=== PATIENT | male | born 1940 | race Caucasian/White ===

== ENCOUNTER 2016-06-23 14:15 | Inpatient (IN) | payer OTHER, MEDICARE, BC ==
[~2016-06-23] VITALS: Ht 182.9 cm; Wt 100.6 kg
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
[~2016-06-23 14:15] MED LIST: ASPIRIN LO-DOSE81 MG PO; COUMADIN ** IA5 MG PO; CRANBERRY200 MG PO; FLOMAX0.4 MG PO; GLUCAGON EMERGEN1 MG SUB-Q; HYDROCHLOROTH12.5 M1 PO; IRON325 MG PO; LEVEMIR FL100 UNIT/1 SUB-Q; LEVOTHROID(SY175 MCG PO; LIPITOR20 M1 PO; LOPRESSOR25 MG PO; LYRICA 50MG CAP50 MG PO; MELOXICAM15 MG PO; MILK OF MA400 MG/5 M PO; MIRTAZAPINE7.5 MG PO; NEURONTIN100 MG PO; NORVASC5 MG PO; NOVOLOG100 UNIT/M SUB-Q; PROTONIX40 MG PO; SENNA8.6 MG PO; TYLENOL325 MG PO; ULTRAM50 MG PO; VITAMIN D1000 UNIT PO; WELLBUTRIN100 MG PO; ZOLOFT50 MG PO
--- NOTE | 2016-06-23 19:04 | NUR ---
D: Nursing Admission I: Nursing interventions provided to support the patient's individual plan of care R: MOBILITY-- Patient is a full lift at this time with non weight bearing on nolan lower extremities NUTRITION-- Patient is diabetic. He is on a regular diet and accuchecks achs. SKIN/INCISIONS/WOUNDS-- Patient has multiple areas of bruising in various stages. Has several small incisions over lower right abdomen all healed. 2 incisions still have steri strips intact. Has multiple areas of scabs over arms and left elbow. He has 2 fluid filled blisters blisters which are intact on his left side. SELF CARES-- He is dependant for his cares at this time. BOWEL/BLADDER--He is continent of bowel but does have some incontinence of bladder and wears a brief. RESPIRATORY-- Lungs are clear. PAIN-- Has generalized pain of legs and arms nolan. PSYCHOSOCIAL-- Denied needs at this time. COGNITION-- He is alert and oriented to self only. SPECIAL NEEDS-- Wound vac in place, woc following. BLEEDING-- He is at risk for bleeding due to multiple injuries and currently on heparin. Has a hx of nolan dvt's in legs. SENSORY IMPAIRMENTS/DENTAL NEEDS: None at this time. TEACHING NEEDS-- He needs lots of teaching regarding his healing an recovery needs. INFECTION CONCERNS: Concern for infection due to incision/wound vac remains in place. RISK FOR ELOPEMENT: None NEED FOR BED/MOVEMENT ALARM: Needs alarms for safety. DISMISSAL PLANS: Unknown at this time. Other: P: Current plan of care reviewed and updated 06/23/16 Olegario GALVEZ
--- NOTE | 2016-06-24 03:52 | NUR ---
Significant Event:PT AAO TO SELF HOWEVER CONFUSED TO PLACE AND TIME.PT IRRITABLE AT TIMES WITH STAFF,REQUIRES 2 ASSIST FOR ALL REPOSISTIONING. REPOSISTIONED EVERY 2 HOURS AND PRN. PT VSS.LAST PAIN PILLS AT 2129. HAS RESTED WELL SINCE. INCONT OF BOWEL AND BLADDER. WOUND VAC TO LEFT UPPER OUTER THIGH. IMMOBILIZER TO RIGHT LEG IN PLACE WELL FOOT DROP BOOT. BRUSING TO MOST OF BODY, SCROTUM BRUSIED WELL. PT HAS PAIN WITH MOVEMENT AND CAN GET AGITATED WITH MOVEMENT.IS FULL LIFT FOR TRANSFERS.IV TO LEFT FOREARM, IV ANTIBIOTICS EVERY 6 HOURS.ACHS BLOOD SUGARS.PABLITO WRAP TO LEFT LEG FROM THIGH TO TOES IN PLACE.NEEDS RIENFORCMENT WITH CALL LIGHT USE TENDS TO YELL OUT FOR STAFF. TAKE MEDICAITON WHOLE WITH NO COMPLICAIONTS. Follow up:
--- NOTE | 2016-06-24 14:51 | NUR ---
Significant Event: ALERT TO NAME, UNABLE TO TELL STAFF PLACE/TIME. FULL LIFT TRANSFERS, REQUESTS BEDPAN- UNABLE TO HAVE BM- SUPPOSITORY GIVEN- MODERATE FROMED AMOUNT, INCONTINENT OF URINE-URINATES IN FRONT USE CHUX ALONG WITH BRIEF FOR INCONTINENCE. WILL REQUEST URINAL ON OCCASSION- PENIS IS HIDDEN WITHIN SCROTUM AND FORESKIN- WILL HAVE TO FIND AND PUSH OUT TO GET IN URINAL PROPERLY. BED BATH TODAY, PABLITO WRAP REMOVED FROM L)LEG AND REAPPLIED, SKIN LOTIONED, WOUNDVAC TO L)UPPER BACK THIGH DRY/INTACT AND WORKING PROPERLY, R)LEG IMMOBILIZER REMOVED-LEG LOTIONED AND REAPPLIED, SCAB AREA TO BACK OF R)ACHILLES INTACT, FOOT DROP BOOT ALSO APPLIED. STERISTRIPS REMAIN INTACT TO ABDOMEN X2, R)SIDE INCISION HEALED. SHAVED, TOENAILS TRIMMED, PERIPHERAL IV FLUSHES WELL TO L)FA, IV ANTIBIOTICS GIVEN ORDERED. 2 NORCO GIVEN AT 0930. UP IN RECLINER AT LUNCH-TSLO BRACE ON WHILE UP MORE THAN 30 DEGREES. SET UP ASSIST WITH MEALS AND FINGER FOODS, AND DAUGHTER HERE TO VISIT THIS AFTN. ACCUCHECKS AC/HS WITH SLIDING SCALE INSULIN. TAKES MEDS WHOLE WITH WATER. Follow up:
--- NOTE | 2016-06-25 01:33 | NUR ---
Significant Event: Patient is alert to slef only. Transfers with full lift and two assist. Turned and repositioned every two hours during the night. Incontinent of B&B. Joshua wrap Removed and replaced to left leg. Skin clean, dry. Accuchecks AC/HS with sliding scale insulin. HS BG 192. Patient pulled out slaine lock at 2300 and New slaine lock was placed to right forearm. Follow up:
--- NOTE | 2016-06-25 14:05 | NUR ---
Significant Event: Alert to self. Forgetful of time/date. Cooperative with cares and follows instruction. RLE immobilizer and foot drop boot on this shift. Left thigh wound vac dressing reenforced this shift, new glenna wrap to LLE. TLSO brace on when up. Full lift transfer. VSS. [place] prn pain control. XL incontinence throughout shift. Douglas called regarding concern for skin reddness/irritation from continuous urine saturation; waiting for return call. Accuchecks ACHS with SSI coverage. Follow up:
--- NOTE | 2016-06-26 03:44 | NUR ---
Significant Event: Patient is alert to self only. Transfers with full lift and two assist. Turned and repositioned every two hours during the night. Incontinent of B&B, pericare given after each incontinent episodes. Accuchecks AC/HS with sliding scale insulin. HS blood glucose was 154. Saline lock to right forearm intact and patent. Follow up:
[2016-06-26 05:40] LABS: BASOPHIL # 0.1 K/uL (0.0-0.2); BASOPHIL % 0.8 %; EOSINOPHIL # 0.2 K/uL (0.0-0.5); HEMATOCRIT 34.9 % (37.0-53.0); HEMOGLOBIN 10.5 g/dL (11.0-16.0); IMMATURE GRANULOCYTE # 0.3 K/uL (0.0-0.3); IMMATURE GRANULOCYTE % 3.5 %; LYMPHOCYTE % 27.1 %; MCH 29.6 pg (27.0-34.0); MCHC 30.1 gm/dL (32.0-36.5); MCV 98.3 fl (83.0-98.0); MONOCYTE # 0.6 K/uL (0.0-1.0); MONOCYTE % 8.1 %; MPV 8.9 fl (9.4-12.4); NEUTROPHIL # (ANC) 4.4 K/uL (1.4-9.0); NEUTROPHIL % 58.5 %; NRBC % 0 /100WBC (0-0.00); PLATELET COUNT 368 K/uL (150-450); RBC 3.55 M/uL (3.50-5.50); WBC 7.5 K/uL (4.0-11.0)
[2016-06-26 06:00] LABS: ANION GAP 12.9 (10.0-19.0); BLOOD UREA NITROGEN 11 mg/dL (6-24); CALCIUM 8.3 mg/dL (8.5-10.5); CHLORIDE 108 mMol/L (96-110); CO2 26 mMol/L (22-32); CREATININE 0.8 mg/dL (0.6-1.3); ESTIMATED GFR (MDRD EQUATION) > 60; POTASSIUM 3.9 mMol/L (3.7-5.1); SODIUM 143 mMol/L (135-145)
--- NOTE | 2016-06-26 19:29 | NUR ---
Significant Event: Follow up: Patient remain in bed today, turned by staff every 2-3 hours also patient slids around in bed on his own. Therapy works with his also. Long leg brace to right leg was opened today and examined skin. Acewrap to left leg was rewapped and wound vac dressing changed out by [facility] today. Eats by himself with set up and encourgement. Patient is confused to place and time, ready to go home to do chores. IV antibiotics continue. Mckinney given this afternoon with dressing change.
--- NOTE | 2016-06-27 04:23 | NUR ---
Significant Event: Patient has been oriented to self and able to state month/year. Unable to reorient pt that he is in the hospital. Was yelling out beginning of shift but has been calm and cooperative with staff. Slept well this shift. IV to right forearm receiving intermittent antibiotics. Wound vac to left thigh, glenna wrap to left leg and immobilizer on right leg. Vitals stable on room air. Incontinent of urine, scrotum and penis becoming reddened. Aloe applied. 2 tabs norco given with night time meds with relief. Pain with repositioning. Took meds whole without problems. Follow up: reorient as needed, 2 assist lift, incontinent cares, TLSO when up
--- NOTE | 2016-06-27 13:52 | NUR ---
Significant Event: Alert to self. Follows directions is cooperative with cares. Pleasantly disoriented to place/time. VSS. Full lift transfer. Left thigh wound vac intact, new glenna wrap to LLE. RLE immobilizer on today. Right FA SL intact, intermittent antibiotics. Large and frequent incontinence, creams to red, irritated groin- no alejandra order per Douglas. Accuchecks achs with ssi coverage. [place] prn pain. Takes meds whole without difficulty. Follow up:
--- NOTE | 2016-06-28 04:11 | NUR ---
Significant Event: Alert and makes needs known. Oriented to name and knows he is in the hospital but can not state this hospital. Wound vac to left thigh functioning w/out difficulty. Peripheral IV in R) forearm flushed well and is wraped in coban. Requested ice cream at HS. Accu check was 151, patient received 2 units of Novolog per s/s. Takes pills whole without difficulty. Follow up:
--- NOTE | 2016-06-28 14:01 | NUR ---
Significant Event: Patient alert but confused and forgetful at times. 2 assist full lift. Needs TLSO on when greater than 45 degrees. Foot drop boot to right leg at all times. Saline lock. Wound vac to left leg. WOC here to change dressing today. here also to evaluate wound. IDD here today and discontinued IV antibiotics. Started on oral antibiotics. Heparin SQ discontinued and coumadin started. To have H&H in the morning. Dulcolox suppository given with results. Taking Moosic for pain. Accuchecks with s/s insulin. Follow up:
--- NOTE | 2016-06-29 01:43 | NUR ---
Significant Event: Alert/oriented x3. Transfers with full lift. No transfers happened on this shift. Right leg immobilizer and foot drop boot on. Left posterior thigh has wound vac intact and glenna wraps on from thigh to toes. Right forearm IV saline locked flushed w/out difficulty no blood return. Takes meds whole with sips of water. No c/o pain. Follow up:
[2016-06-29 06:00] LABS: HEMATOCRIT 36.5 % (37.0-53.0)
[2016-06-29 06:49] LABS: PROTIME 10.7 SECONDS (9.6-11.1)
--- NOTE | 2016-06-29 14:59 | NUR ---
Significant Event: Follow up: Patient remain resting in bed, refuses to get up out of bed with staff. Long leg brace to right leg on all time, noted old dry scab area to achillies tendon, called WOC who will assess this area tomorrow when up to change wound vac, also wears foot drop boot all times. eats by himself.
--- NOTE | 2016-06-29 17:31 | NUR ---
Pt up in recliner at 1600. Didn't want to stay up. ENc to stay up til after supper. He had Barnet at 1625 for pain behind both knees. Rated at '5'
--- NOTE | 2016-06-29 17:33 | NUR ---
wound vac output this shift 125 ml.
--- NOTE | 2016-06-30 04:25 | NUR ---
Significant Event: Patient disoriented to time and place. Has been calm and cooperative with cares all shift. Repositioned every 2hrs. Right leg immobilizer on, glenna wrap to left leg, wound vac to left thigh continuous suction with approx.50mls out. Vital signs stable, on room air. IV to right forearm saline locked. Incontinent of urine. [place]on given x2 for pain and benadryl given x1 for itching with relief. Follow up: WOC to see today for wound vac change and assess right heel ulcer, reorient as needed
[2016-06-30 06:43] LABS: PROTIME 10.9 SECONDS (9.6-11.1)
--- NOTE | 2016-06-30 11:58 | NUR ---
Significant Event: Patient alert but confused and forgetful at times. 2 assist full lift. TLSO brace on when greater than 45 degrees. [facility] nurse here today and changed wound vac dressing to left thigh. Rewrapped glenna wrap. [facility] nurse looked at right leg and patient has a new deep tissue injury on his calf under with immobolizer. Mepilex x2 applied to areas. [facility] nurse placed a call to to report this and to see if patient can have immobolizer off some of the time to right leg. Message was left with him, have not heard back as of now. Immobolizer to right leg at all times. Foot drop boot to right leg at all times. Accuchecks with s/s insulin. Taking Jacob for pain. Follow up:
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
--- NOTE | 2016-07-01 01:49 | NUR ---
Significant Event: Patient is alert and oriented to self only. Transfers with two assiat and full lift. Pleasant and cooperative with cares. Turned and repositioned every two hours and PRN. Wound vac intact and patent IV to right forearm slaine locked. Right leg immobilizer and foot drop boot on. Joshua wrap to left leg. Incontinent of urine. Follow up:
[2016-07-01 06:11] LABS: INR - (THERAPEUTIC) 1.1 (0.9-1.1); PROTIME 11.4 SECONDS (9.6-11.1)
--- NOTE | 2016-07-01 16:41 | NUR ---
Significant Event: Follow up: Patient resting in bed most of shift, up into chair this afternoon with full lift. Joshua wrap to left leg rewrapped today, wound vac in use. right leg immobiizer removed this am and examined leg, dressings to posterior leg remain in place , also piece of padding in also in place inside of brace. patient in incontinent of urine at all times. no stool today. given norco this am. family visits. patient becomes more agitated after went home this afternoon.
--- NOTE | 2016-07-02 03:38 | NUR ---
Significant Event: Patient oriented to self. Repositioned every 2hrs. Incontinent of urine. Has a very small open area to right buttock from being on bed johnson yesterday evening. Right forearm IV saline locked. Right leg immobilizer remains on with dressings in place to right calf for protection of sore. Wound vac to left thigh with approx 150 out. Has been calm and cooperative with cares Follow up: monitor skin
[2016-07-02 06:03] LABS: INR - (THERAPEUTIC) 1.1 (0.9-1.1)
--- NOTE | 2016-07-02 16:52 | NUR ---
Significant Event: Follow up: Resting in bed most of shift, up to chair for aprox 1 hour this afternoon. During that time up , patient removed the front side of TLSO brace, had a visitor attempting to help him to stand up. Patient thinks that he can walk and is telling this to visitors who apparently believe him. Patient returned to bed via full lift for his safety. Given milk of magnesia this afternoon, no stooling as of yet. Patient is completely incontinent of urine, attends is soaked also placing a green pad inside of attend to catch urine. so far no skin breakdown to bottom, possibly needs antifungal to groin area. Brace to right leg removed and replaced, no new skin problems noted today, dressings intact to posterior leg. Left glenna wraps redone also. 100 ml from vac.
--- NOTE | 2016-07-03 04:10 | NUR ---
Significant Event: ORIENTED TO SELF. REPOSITIONED EVERY 2HRS. INCONTINENT OF URINE. SMALL OPEN AREA TO RIGHT BUTTOCK, FROM BEING LEFT ON BEDPAN. ANXIOUS AND TRYING TO CRAWL OUT OF BED, SAYING HE NEEDED TO FIND HIS , SHE HAD AN OPERATION. TRIED CALLING THE 'S CELL PHONE AND HOME PHONE NUMEROUS TIMES WITH NO ANSWER. HE LEFT NUMEROUS AGGITATED VOICEMAIL'S, AND WAS CONVINVED SHE WAS JUST NOT SAYING ANYTHING AFTER PICKING UP THE PHONE, EVEN AFTER EXPLAINING IT WAS HER VOICEMAIL. ANXIOUS UNTILL BEDTIME MEDS WERE GIVEN. C/O ITCHING, GAVE BENEDRYL. Follow up:
[2016-07-03 06:34] LABS: INR - (THERAPEUTIC) 1.2 (0.9-1.1); PROTIME 12.6 SECONDS (9.6-11.1)
[2016-07-03 06:55] LABS: BLOOD UREA NITROGEN 18 mg/dL (6-24); CALCIUM 8.8 mg/dL (8.5-10.5); CHLORIDE 106 mMol/L (96-110); CO2 28 mMol/L (22-32); CREATININE 0.9 mg/dL (0.6-1.3); ESTIMATED GFR (MDRD EQUATION) > 60; SODIUM 139 mMol/L (135-145)
[2016-07-03 08:01] LABS: BASOPHIL # 0.1 K/uL (0.0-0.2); BASOPHIL % 0.8 %; EOSINOPHIL # 0.2 K/uL (0.0-0.5); EOSINOPHIL % 2.4 %; HEMATOCRIT 39.9 % (37.0-53.0); HEMOGLOBIN 12.1 g/dL (11.0-16.0); IMMATURE GRANULOCYTE # 0.1 K/uL (0.0-0.3); IMMATURE GRANULOCYTE % 1.7 %; LYMPHOCYTE # 2.7 K/uL (0.8-4.0); LYMPHOCYTE % 32.7 %; MCH 29.7 pg (27.0-34.0); MCHC 30.3 gm/dL (32.0-36.5); MCV 97.8 fl (83.0-98.0); MONOCYTE # 0.6 K/uL (0.0-1.0); MONOCYTE % 7.4 %; MPV 10.3 fl (9.4-12.4); NEUTROPHIL # (ANC) 4.6 K/uL (1.4-9.0); NRBC % 0 /100WBC (0-0.00); RBC 4.08 M/uL (3.50-5.50); RDW-CV 17.8 % (11.9-14.6); WBC 8.4 K/uL (4.0-11.0)
[2016-07-03 08:02] LABS: PLATELET COUNT 278 K/uL (150-450)
--- NOTE | 2016-07-03 12:43 | NUR ---
Significant Event: Alert and oriented this am. Full lift transfer. VSS. Left hip wound vac changed by WOC this am, draining. RLE mepilex dressings changed by WOC this am, immobilizer now can be off while in bed only. TLSO when up. Takes norco prn pain control. Accuchecks ACHS with SSI. Follow up:
--- NOTE | 2016-07-04 02:32 | NUR ---
Significant Event: Lt thigh wound vac intact with serosanguanous drainage. Rt leg immobilizer may be off in bed . TLSO brace on when up. Up with 2 assist/full lift. Joshua wrap to lt extremity. Mepilex intact to rt lower leg/heel. Had a HUGE bm early this morning. IV to rt wrist flushes well. Pt has excoriated penis. Site cleansed well and aloe [place] applied. Can wiggle lt toes but not rt. ACHS blood sugars. Needed sliding scale insulin. Follow up:
[2016-07-04 05:43] LABS: INR - (THERAPEUTIC) 1.4 (0.9-1.1); PROTIME 14.9 SECONDS (9.6-11.1)
--- NOTE | 2016-07-04 14:00 | NUR ---
Significant Event: Alert/oriented and able to follow direction/task this am. VSS. Full lift. Left thigh wound vac intact, draining small amount. RLE mepilex dressings intact, immobilizer on when up. TLSO on when up. Accuchecks ACHS with SSI. Pain controlled with prn norco today. Follow up:
--- NOTE | 2016-07-05 02:06 | NUR ---
Significant Event: Oriented to person and time. Disoriented to place with forgetfulness. COoperative. ACHS blood sugars. Rt leg is painful when moves. Immobilizer may be off when in bed. Mepilex to rt heal. Per WOC pressure area from immobilizer and dressing is intact. Also had foot drop boot to rt foot. groin/scrotum/buttocks reddened and aloe vista applied. Had another bm last night. Incontinent of bowel & bladder. Denies pain when just laying in bed. Takes pills whole 2 @ a time. TLSO on when up Continues to be full lift. Wound VAc to lt thigh. Follow up:
[2016-07-05 05:34] LABS: INR - (THERAPEUTIC) 1.6 (0.9-1.1); PROTIME 17.6 SECONDS (9.6-11.1)
--- NOTE | 2016-07-05 11:13 | NUR ---
A - NUT F/U. A/O TO SELF. DISORIENTED/FORGETFUL. 06/30 WT 235#, 06/26 WT 249#, 05/13 WT 268# - DOWN 33# (12%) x 1.5 MONTHS. LABS: ACCUCHECK REAS, GLU 129 MEDS: SSI, LEVEMIR, WELLBUTRIN, SYNTHROID, PROTONIX, FLORASTOR, ZOLOFT, BOWEL DIET: FINGER FOOD. INTAKE: REF-75% GLUCERNA TID - 100% NEEDS: 1219-8800 KCAL, 122-146 G PRO D - INADEQUATE NUTRIENT INTAKE R/T DECREASED APPETITE, SELF-FEEDING DIFFICULTY AEB INTAKE RECORD, NEED FOR FINGER FOODS. I - GOAL FOR INTAKE 50-75% BY NEXT ASSESSMENT. WILL CONTINUE GLUCERNA TID. WILL ADD CHEESE & CRACKERS @ AM SNACK AND ENSURE COMPACT AT PM SNACK M/E - WILL MONITOR INTAKE AND ASSIST NEEDED.
--- NOTE | 2016-07-05 17:16 | NUR ---
Significant Event: TRANSFERS WITH ASSIST OF 2 USING FULL LIFT. PRN NORCO GIVEN X1 THIS SHIFT OFFERED A SECOND TIME AND PATIENT REFUSED WELL REFUSING HIS 1400 HEPARIN, AND CALCIUM TAB. UP IN RECLINER THIS AFTERNOON WANTING TO GO TO [place]. COOPERATIVE WITH CARES. Follow up:
--- NOTE | 2016-07-06 02:24 | NUR ---
Significant Event: Continues to be confused. Oriented to person & time, doesn't know where he is. forgetful. He thinks he can walk. Continues to be a total lift with 2 assist. TLSO brace on when up & immobilizer on when up. Denies pain when just laying in bed. Incontinent of bowel & bladder. ACHS blood sugars. Follow up: Call MD to see if IV can be left out.
[2016-07-06 06:52] LABS: INR - (THERAPEUTIC) 1.9 (0.9-1.1); PROTIME 21.1 SECONDS (9.6-11.1)
--- NOTE | 2016-07-06 15:11 | NUR ---
tcu team meeting patient eating finger foods, likes magic cup and ice cream, so dietary will add that to his menur. sending up cheese adn crackers and ensure for snacks. OT/PT co treating. full lift, confusion, speech therapy working with patient. continue on TCU for medical needs and therapies.
--- NOTE | 2016-07-06 15:43 | NUR ---
PT ABLE TO FEED SELF MAGIC CUPS. RESTARTED MAGIC CUPS @ L[facility]D.
--- NOTE | 2016-07-06 19:21 | NUR ---
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 L)LEG PABLITO WRAP REMOVED AND REPLACED, MEPILEX DRESSING D/I TO R)ACHILLES, WOUND VAC ON BACK L)THIGH D/I- 100 OUT, TSLO ON IF HEAD OF BED GREATER THAN 40 DEGREES. ACCUCHECKS AC/HS. TAKES PILLS WHOLE WITH SIPS OF WATER A FEW AT A TIME. TURN EVERY 2 ALLOWS. TAKES TSLO BRACE FRONT OFF WHILE UP IN RECLINER, "TOO HOT" REFUSES TO HAVE PLACED BACK ON WHILE UP IN RECLINER. INR 1.9 TODAY- CONTINUE HEPARIN UNTIL INR GREATER THAN 2. WOC TO SEE TOMORROW. VS WNL. POOR APPETITE- DRINKS FLUIDS AND GLUCERNA WELL. NEEDS HELP WITH SET UP DRINKS AND FINGER FOODS, Follow up:
--- NOTE | 2016-07-07 02:06 | NUR ---
Significant Event:Patient can verbalize needs. Alert to name and that he is in a hospital. Full lift for transfers. Frequent turns. Inc. of large amt of urine so chux pad folded in half and placed in brief. Takes meds with difficulty. Wraps undone to left leg and rewrapped. Patient voiced no c/o pain. Patient removes front half of TLSO brace when in chair. Wound vac functioning properly to left thigh. Follow up:
[2016-07-07 04:42] LABS: INR - (THERAPEUTIC) 2.2 (0.9-1.1); PROTIME 24.8 SECONDS (9.6-11.1)
--- NOTE | 2016-07-08 01:37 | NUR ---
Significant Event:Patient makes needs known. Uses red call light bulb. Two person assist for turns and at times three to perform pericares. Inc. of urine and stool. Noted small red pimples in groin area. Aloe [place] applied to coccyx area. Joshua wraps rewrapped this shift. R) foot drop boot on. TLSO brace off when in bed. PRN Ultram 50 MG PO given at 2120. HS accucheck was 193 and patient received 2 units of s/s Novolog for coverage. Wound vac functioning without complications. Follow up:
[2016-07-08 05:51] LABS: PROTIME 22.7 SECONDS (9.6-11.1)
--- NOTE | 2016-07-08 17:08 | NUR ---
Significant Event: Alert and oriented. Can be forgetful. Uses red call light bulb. 2 Assist with transfers and turns. Full Lift transfers. 1 X large incontinent loose bowel movement this shift. Aloe applied to coccyx and groin. Small pimples around right upper thigh and red line accross thigh, aloe vera applied. Foot drop boots to bilateral feet. TLSO brace and leg immobilizer on while up. Joshua wraps on leg rewrapped this am. ACHS accucheck 111 and 199 with 2 units correction. Wound Vac to right upper thigh, 50 ml out this shift. No IV Access. Pleasant and cooperative with cares. Follow up:
[2016-07-09 05:17] LABS: INR - (THERAPEUTIC) 2.4 (0.9-1.1); PROTIME 27.3 SECONDS (9.6-11.1)
--- NOTE | 2016-07-09 06:02 | NUR ---
Significant Event: REPOSITION EVERY [address]CONT[address] BRIEF IN PLACE. PATIENT USED URINAL DURING NIGHT. IMMOBILIZER TO RLE WHEN OUT OF BED. TLSO WHEN HOB ELEVATED GREATER THAN 45 DEGREES. LEFT THIGH WOUND VAC AT 150MMHG. PABLITO WRAP TO LLE. OPEN AREA ON BUTTOCK. DENIES NEED FOR PAIN MEDICATION. INR 2.4 Follow up:
--- NOTE | 2016-07-09 15:54 | NUR ---
Significant Event: Pt a/o x 3, forgetful, cooperative with cares. Transfers with 2 assist and full lift. Denies pain. Lungs clear/diminished. Heart tones irregular. Afebrile. Wound vac drsng occlusive/intact. Unwrapped glenna wraps from l) leg around 1400, left open to air approx 20 minutes and then rewrapped. Undid immobilizer to check pt skin then replaced. Mepilex to wound on back of ankle is dry/intact. TLSO on at all times, until put back to bed. INR 2.4 today. Up in recliner from 1100 to 1500 today. Follow up:
--- NOTE | 2016-07-10 04:23 | NUR ---
Significant Event: a/o, forgetful. cooperative with cares. 2 assist with full lift. repositioned every [address] hours[address] incontin[address]. glenna wrap to LLE. small open area on buns. C/O of back and hip pain. 2x norco @ 1640 . 2X norco again at 0350. Follow up:
[2016-07-10 05:06] LABS: INR - (THERAPEUTIC) 2.8 (0.9-1.1); PROTIME 32.2 SECONDS (9.6-11.1)
--- NOTE | 2016-07-10 12:44 | NUR ---
Student nurse provided patient cares from 0600 to 1230. Fredrick Rivera RN [facility] Instructor
--- NOTE | 2016-07-10 16:15 | NUR ---
Significant Event: Follow up: Remain resting in bed, turned by staff for toileting needs. incontinet of urine. glenna wrap and woundvac to left leg, mepilex changed to right posterior leg by [facility] nurse today. Eats well at breakfast and noon. norco 2 tabs last at 1230. Patient becomes more confused around 1530 each afternoon, starts to look for his pickup truck, wants to leave to take care of animals.
--- NOTE | 2016-07-11 04:56 | NUR ---
Significant Event: A/O, but forgetful. 2 assist full lift and frequent repositioning. Joshua wrap and wound vac to LLE. Took pain medication at hs for c/o pain. ACHS accuchecks with s/s insulin and Levemir. Cooperative with cares. Follow up:
--- NOTE | 2016-07-11 16:38 | NUR ---
Significant Event: Follow up: UP to chair this afternoon with use of full lift, sat up for aprox 2 hours then returns to bed. Uses TLSO and long leg brace when up to chair. Eats poorly , eats mostly candy and cookies. Joshua wrap and wound vac to left lower leg. Incontinent of urine.
--- NOTE | 2016-07-12 03:04 | NUR ---
Significant Event: Patient is frequently disoriented to time and place. 2A full lift for transfers. ACHS accuchecks. [place] x2 given for pain. TLSO brace and leg brace to be on when up. Poor food and fluid intake. Incontinent at times. Repositioned from side to side with lift. Follow up:
[2016-07-12 05:51] LABS: INR - (THERAPEUTIC) 2.5 (0.9-1.1); PROTIME 28.6 SECONDS (9.6-11.1)
--- NOTE | 2016-07-12 13:00 | NUR ---
Significant Event: Patient alert but with intermittent confusion. Foot drop boots bilaterally. May have immobolizer off of right leg when in bed. TLSO brace on if greater than 45 degrees. Mepilex dressings intact to right calf. Incontinent of urine. Taking [place] for pain. 2 assist full lift. Follow up:
--- NOTE | 2016-07-13 03:22 | NUR ---
Significant Event: Vital signs stable. Repositioned every 2hrs. 2 tabs norco given with night time meds. Wound vac remains in place to left thigh and glenna wrap on left leg. PRN milk of mag given with no results yet. Did use urinal when offered. Follow up: Immobilizer and TLSO on when up, continue to offer toileting
--- NOTE | 2016-07-13 13:04 | NUR ---
tcu team meeting koko continues with wound vac, therapies and is NWB until 08-11-16. to round and advise when he thinks patient could move to a SNF closer to home. BRIANNA left voice mail with Rajani to see what facility she would like me to explore, whenever patient medically ok to leave TCU and be in a SNF closer to home.
--- NOTE | 2016-07-13 15:17 | NUR ---
Significant Event: Follow up: Remain resting in bed today. Turned by staff several times this shift for toileting. Patient recieved ducolax supp and milk of mag during the cnc machinist 2nd shift without results, given an additional ducolax supp this afternoon, still no results. Patient eats and drinks poorly, eats cookies and candy most of the time. Therapy work with patient, TLSO on when up also wears long leg immobliizer to right leg when up.
--- NOTE | 2016-07-13 23:53 | NUR ---
OOB in Recliner for dinner. Full lift for transfer to bed. TLSO on at all times when out of bed and off when in bed. Immobilizer on R leg. Foot drop boots on bilateral foot. Incontinent of B/B. L hip wound vac connected and working well through the night. Accuchecks AC/HS. Rested fair.
[2016-07-14 06:21] LABS: INR - (THERAPEUTIC) 3.2 (0.9-1.1); PROTIME 37.1 SECONDS (9.6-11.1)
--- NOTE | 2016-07-14 11:37 | NUR ---
Significant Event: BUSINESS ADMINISTRATION TEACHER TOOK CARE OF PATIENT UNTIL 1300. TRANSFERS WITH 2 ASSIST USING FULL LIFT. TLSO BRACE ON WHEN OUT OF BED. LONG LEG IMMOBILIZER ON WHEN UP AND OFF WHEN IN BED. WOC CHANGED WOUND VAC DRESSING TODAY. COOPERATIVE WITH CARES. Follow up:
--- NOTE | 2016-07-14 12:41 | NUR ---
PATIENT WAS CARED FOR BY A STUDENT NURSE FROM [id number]. SUPERVISED BY Katerin DE LA ROSA RN FROM [facility]
--- NOTE | 2016-07-15 02:40 | NUR ---
Significant Event:Alert to self. Disoriented to time and place. 2 assist full lift transfer. Wound vac to L) continuous @ 150mmHg. Bilateral foot drop boots on, skin intact to feet and Lower Legs. Immobilizer to R) leg on when out of bed. Left leg glenna wrap from thigh to toes, abrasion to R) knee noted. Wound vac intact to left thigh, keep tubing wrapped under glenna wrap to aoid patient pulling on it. Aloe to groin. Voided X2 per urinal, no incontinence at this time. 2 [place] for pain at 2100. Takes meds a few at atime whole with water. TLSO on when up or HOB > 45degrees. Follow up:
--- NOTE | 2016-07-15 12:31 | NUR ---
Significant Event: Alert/oriented. VSS. Full lift transfer. TLSO on and immobilizer to RLE on when up. Left thigh wound vac intact. Joshua wrap to LLE. Bilateral foot drop boots on today. Accuchecks ACHS. [place] prn for pain control. Refuses am cares this morning, refuses up to chair for breakfast and lunch, will offer again this afternoon. Follow up:
--- NOTE | 2016-07-16 03:47 | NUR ---
Significant Event: Pt alert to self. Confused and aggitated. 2 assist full lift. Wound vac to L0 hip continuous. 0 out from wound vac. Wound vac blockage alarm going off. Complained of 6-8/10 left hip pain. Offered urinal every 1-2 hours used it twice. Combative when trying to turn and fix wound vac. Follow up:
[2016-07-16 05:51] LABS: INR - (THERAPEUTIC) 3.1 (0.9-1.1); PROTIME 35.4 SECONDS (9.6-11.1)
--- NOTE | 2016-07-16 12:47 | NUR ---
Significant Event: Alert to self. Confused and occasionally agitated this shift. VSS. Full lift transfer. TLSO and immobilizer on when up. Foot drop boots on when at rest. Joshua wrap to left lower extremety. WOC here this am to change leaking dressing. Occasional incontinence, continent with urinal a couple of times this shift. Miralax and MOM given for need of bm, no results so far. Requests pain medication around lunch time, davsi henley with relief noted. Follow up:
--- NOTE | 2016-07-17 03:52 | NUR ---
Significant Event: ALERT TO SELF. PT CONFUSED AND AGGITATED. VSS. FULL LIFT WITH 2 ASSIST. WOUND VAC TO L) HIP WITH NO MEASURABLE OUTPUT. OFFERED URINAL THROUGHOUT NIGHT. LEFT HIP PAIN MOST OF SHIFT. COMBATIVE WHEN TURNING. NORCO GIVEN AT 2024, TRAMADOL AT 2328. RESTLESS MOST OF THE NIGHT. Follow up:
[2016-07-17 05:11] LABS: BASOPHIL # 0.1 K/uL (0.0-0.2); BASOPHIL % 0.6 %; EOSINOPHIL # 0.2 K/uL (0.0-0.5); EOSINOPHIL % 2.2 %; HEMATOCRIT 39.7 % (37.0-53.0); HEMOGLOBIN 12.4 g/dL (11.0-16.0); IMMATURE GRANULOCYTE # 0.2 K/uL (0.0-0.3); IMMATURE GRANULOCYTE % 1.8 %; LYMPHOCYTE # 2.2 K/uL (0.8-4.0); LYMPHOCYTE % 22.5 %; MCH 28.7 pg (27.0-34.0); MCHC 31.2 gm/dL (32.0-36.5); MONOCYTE # 0.7 K/uL (0.0-1.0); MONOCYTE % 7.2 %; MPV 9.4 fl (9.4-12.4); NEUTROPHIL # (ANC) 6.4 K/uL (1.4-9.0); NEUTROPHIL % 65.7 %; NRBC % 0 /100WBC (0-0.00); RBC 4.32 M/uL (3.50-5.50); WBC 9.7 K/uL (4.0-11.0)
[2016-07-17 05:14] LABS: MCV 91.9 fl (83.0-98.0); PLATELET COUNT 337 K/uL (150-450); RDW-CV 15.6 % (11.9-14.6)
[2016-07-17 05:15] LABS: INR - (THERAPEUTIC) 2.6 (0.9-1.1); PROTIME 30.1 SECONDS (9.6-11.1)
[2016-07-17 05:22] LABS: ANION GAP 10.9 (10.0-19.0); BLOOD UREA NITROGEN 20 mg/dL (6-24); CALCIUM 8.9 mg/dL (8.5-10.5); CHLORIDE 105 mMol/L (96-110); CO2 27 mMol/L (22-32); CREATININE 0.8 mg/dL (0.6-1.3); ESTIMATED GFR (MDRD EQUATION) > 60; POTASSIUM 3.9 mMol/L (3.7-5.1); SODIUM 139 mMol/L (135-145)
--- NOTE | 2016-07-17 12:09 | NUR ---
Student nurse provided patient cares from 0600 to 1215. Fredrick Rivera RN, [facility] Instructor
--- NOTE | 2016-07-17 13:57 | NUR ---
Significant Event: 2 assist full lift. Intermittent confusion. TLSO on when greater than 45 degrees. Foot drop boots. Immobolizer to right leg when out of bed. Right calf has mepilex dressing x2. WOC nurse changed wound vac to left leg today. Hard to turn. Having pain in legs and back. Taking [place] and Ultram for pain. Accuchecks with s/s insulin. Poor appetite. Follow up:
--- NOTE | 2016-07-18 01:30 | NUR ---
Significant Event:Alert to self. reorient to all else, 2 assist full lift out of bed. Bilateral footdrop boots on. TLSO on when up greater than 45 degrees. Immobilizer to be applied to Right leg when away from bed. Wound vac to left thigh at 150mmHg continuous. Incontinet of bowel and bladder at times. ACHS accucchecks. 2 [place] for pain control at 2330. repo as allowed. Call bulb attached to sheet. Bed alarm on. Follow up:
[2016-07-18 05:57] LABS: INR - (THERAPEUTIC) 2.5 (0.9-1.1); PROTIME 27.8 SECONDS (9.6-11.1)
--- NOTE | 2016-07-18 15:05 | NUR ---
Significant Event: Patient alert but confused. 2 assist full lift. TLSO brace on when 45 degrees or greater. Foot drop boots bilaterally. Mepilex dressings to right calf. Incontinent at times. Immobolizer to right leg when up. Accuchecks with s/s insulin. Taking [place] for pain. X-rays done yesterday. here today and rounded.
--- NOTE | 2016-07-19 02:55 | NUR ---
Significant Event: NEURO/PSYCH: A&O to self only, needs constant reorientation. Hx of CVA Lt sided weakness. Wears foot drop boots. Hx of depression HEENT: Discoloration to teeth RESP: Clear, RA CARDIO: VSS, SCD's, BLE edema ACTIVITY: x2 assist, q2 turn, full lift GI/: ADA diet, SSI moderate--BS @ HS 147; en levemir BID. Takes pills whole, 4 @ a time. Can be incontinent of bowels and bladder. SKIN: R calf drsg for ulcer. Wound vac to L hip--none out my shift. Immobilizer to R leg when up. TSLO when >45 deg. PAIN: No c/o pain. Will treat for pain with 2 Norcos around 0400. PLAN: Unknown d/c plan d/t placement issues.
[2016-07-19 05:56] LABS: INR - (THERAPEUTIC) 2.2 (0.9-1.1); PROTIME 24.9 SECONDS (9.6-11.1)
--- NOTE | 2016-07-19 16:30 | NUR ---
Significant Event: Patient alert but confused. 2 assist full lift. TLSO brace on when up more than 45 degrees. Foot drop boot bilaterally. Immobolizer to right leg on when up. Wound vac to left leg. Dressing changed by WOC nurse today. Better day today with pain. Follow up:
--- NOTE | 2016-07-20 03:08 | NUR ---
Significant Event:Patient alert to self. 2 assist full lift. Wound vac to left thigh, operating at 150mmHg. Left leg glenna wrapped thigh to toes. Bilateral foot drop boots on. Mepilex to right calf intact. Incontinent of Bowel and bladder at times. ACHS accuchecks with sliding scale. [place] for pain as needed, last at 2215. Meds whole with water. TLSO on when up greater than 45degrees. Immobilizer to R) leg on when out of bed. Call light within reach. Follow up:
--- NOTE | 2016-07-20 03:13 | NUR ---
Significant Event:A/O. Mod I. ACHS accuchecks with sliding scale and carb coverage. Peripheral IV in Left forearm, flushes well some blood return. Tegaderm dressing to left chest can be removed this afternoon, prior central site. Daily weight. Oxycodone for pain, last at midnight. Xarelto on hold for three days starting today. Call light within reach. Follow up:Follow up with hospitalist on urine culture.
[2016-07-20 05:31] LABS: INR - (THERAPEUTIC) 2.2 (0.9-1.1); PROTIME 24.7 SECONDS (9.6-11.1)
--- NOTE | 2016-07-20 12:40 | NUR ---
Significant Event: Alert to self. Disoriened to time/place. Confused throughout this am, but pleasant and cooperating with cares. Wound vac intact, scant amt of drainage. Mepilex dressing to right lower leg CDI. Bilateral foot drop boots. TLSO and RLE immobilizer to be worn when up or greater than 45 degrees. Takes davis this am for complaints of pain to left leg. Follow up:
--- NOTE | 2016-07-21 02:59 | NUR ---
Significant Event:Alert to self. VEry confused t his shift. Reaching for things not there. Chewing meds tonight instead of swallowing. Pulling on wound vac tubing. Rewrapped wound vac tubing. Bilateral foot drop boots on at all times. TLSO on when up <45 degrees. Immobilizer to R) leg when out of bed. Mepilex to right calf intact. Showing signs of pain with restlessness and OUCH!! REfused to take meds, reapproached x2. Pulls pillows out when repoed. ACHS accuchecks, 2100 148 no sliding scale needed. Call light in reach. Follow up:
[2016-07-21 06:06] LABS: PROTIME 22.2 SECONDS (9.6-11.1)
--- NOTE | 2016-07-21 14:04 | NUR ---
Significant Event: Alert to self, confused throughout shift. Cooperative most of shift, unable to follow directions at times. Wound vac to left thight intact, changed today by WOC. Mepielx dressing to Left knee for protection, blistered, scabbed, and abraision under dressing. Joshua wrap to left lower extremety. RLE immobilizer and TLSo when up. Tolerates up to chair for several hours this afternoon. Inc. of bowel and bladder throughout shift, refuses urinal offers throughout shift. Takes norco prn for pain control. Accuchecks ACHS. Follow up:
--- NOTE | 2016-07-21 16:05 | NUR ---
visited with patients on the phone this afternoon. Her first SNF choice in the community is [facility]. 2nd choice [facility]. 3rd choice either [facility] or [facility] in [place]. states she will call [facility] today and see if he is on their list and if an opening is available. at this time, will need to direct us in r/t either patient returning to acute care for bone graft surgery, or giving the ok to transfer to a community SNF. patient has used 28 SNF days. states their liability insurance verify rep Yair Prabhakar from [employer] has my phone # and may be calling me as he had questions about the medicare days.
--- NOTE | 2016-07-21 21:48 | NUR ---
210 PATIENT IS ALERT AND DISORIENTED. PATIENT BECOMES ANGRY WHEN HOB IS ELEVATED FOR MEDICATION ADMINISTRATION. HE THEN BEGINS TO MOVE HIS BLANKETS AROUND STATING HE IS LOOKING FOR HIS MEDICATIONS WHICH HAD NOT YET BEEN GIVEN TO HIM. HE BECOMES ANGRY WHEN REORIENTED. HE THREATENS TO HIT THIS STAFF MEMBER BUT DOES NOT BECOME PHYSICAL. 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 THIS STAFF MEMBER LEAVES THE ROOM FOLLOWING MEDICATION ADMINISTRATION AND LAVENDER IS PLACED IN HIS ROOM. BED ALARM IN PLACE. CALL LIGHT WITHIN REACH.
--- NOTE | 2016-07-22 03:32 | NUR ---
Significant Event: PATIENT IS DISORIENTED AND HOSTILE THROUGHOUT SHIFT. SEROQUES STARTED TO HIS MEDICATION REGIMEN. PATIENT DID NOT SLEEP WELL LAST NIGHT. INCONTINENT OF BOWEL AND BLADDER. FULL LIFT. TURN Q2H. WOUND VAC TO LEFT HIP CHANGED 07/21. ADMINISTERED 2 TAB NORCO DURING NIGHT WHICH DID NOT ASSIST IN PATIENT SLEEPING. Follow up:
[2016-07-22 07:32] LABS: INR - (THERAPEUTIC) 2.1 (0.9-1.1); PROTIME 23.9 SECONDS (9.6-11.1)
--- NOTE | 2016-07-22 17:09 | NUR ---
Significant Event: Pt is a/o x 3, gets confused easily. V/S stable. Lungs clear, diminished LLL. Bowel sounds x 4. Scattered ecchymosis, also noted by his lip. slight edema L) knee. No IV access. Wound vac intact, draining without difficulty. Immobilizer on r) leg when out of bed. [place] given last at 1620. Gets up to recliner with full lift and two assist; pt has difficulty following instructions. Incontinent of bowel/bladder. At 1720, pt's daughter voiced concern about pt possibly having a stroke. Charge and primary nurses went to check patient. Checked smile, no droop noted. Grasp moderate and equal. Tongue midline when stuck out. Pt follows commands. Discussed with family that there appear to be no initial symptoms of stroke; they voiced understanding. Follow up: PLEASE NOTE - IMMOBILIZER ORDER IS FOR THE RIGHT LEG.
--- NOTE | 2016-07-23 03:57 | NUR ---
Significant Event:Pt very confused, talking nonsense things that do not make sense or have any relevance. wound vac intact with 100 output. 2 assist full lift. tslo on when out of bed. immobolizer on when out of bed. has difficulty following instructions. Follow up:
[2016-07-23 06:59] LABS: INR - (THERAPEUTIC) 2.3 (0.9-1.1); PROTIME 26.1 SECONDS (9.6-11.1)
--- NOTE | 2016-07-23 17:36 | NUR ---
CONFUSED- AGITATED, YELLS, PICS, HITS. WOUND VAC TO L HIP. TURN Q2. REF CHAIR. BRACE ON WHEN UP. HTN 150'S. NORCO X2 TODAY. ACHS
--- NOTE | 2016-07-24 02:44 | NUR ---
Significant Event: Pt oriented to self, often confused and rambling strange things. wound VAC intact to left hip. TSLO on during day when out of bed, immobilizer to right leg when out of bed. has difficulty following instructions. achs accuchecks, HS accuchekc 263, 6 units given. Follow up:
[2016-07-24 10:25] LABS: BASOPHIL # 0.1 K/uL (0.0-0.2); BASOPHIL % 0.7 %; EOSINOPHIL # 0.1 K/uL (0.0-0.5); EOSINOPHIL % 1.4 %; HEMATOCRIT 39.9 % (37.0-53.0); HEMOGLOBIN 12.2 g/dL (11.0-16.0); IMMATURE GRANULOCYTE # 0.2 K/uL (0.0-0.3); IMMATURE GRANULOCYTE % 1.7 %; LYMPHOCYTE # 2.3 K/uL (0.8-4.0); LYMPHOCYTE % 25.4 %; MCH 28.2 pg (27.0-34.0); MCHC 30.6 gm/dL (32.0-36.5); MCV 92.1 fl (83.0-98.0); MONOCYTE # 0.6 K/uL (0.0-1.0); MONOCYTE % 6.1 %; MPV 9.1 fl (9.4-12.4); NEUTROPHIL # (ANC) 5.9 K/uL (1.4-9.0); NEUTROPHIL % 64.7 %; NRBC % 0 /100WBC (0-0.00); PLATELET COUNT 455 K/uL (150-450); RBC 4.33 M/uL (3.50-5.50); RDW-CV 15.7 % (11.9-14.6); WBC 9.1 K/uL (4.0-11.0)
[2016-07-24 10:33] LABS: INR - (THERAPEUTIC) 2.9 (0.9-1.1); PROTIME 33.6 SECONDS (9.6-11.1)
[2016-07-24 10:44] LABS: ALBUMIN 2.2 gm/dL (3.5-5.0); ALK PHOS 146 IU/L (33-138); ALT 14 IU/L (12-78); ANION GAP 15.2 (10.0-19.0); AST 19 IU/L (10-40); BLOOD UREA NITROGEN 17 mg/dL (6-24); CHLORIDE 107 mMol/L (96-110); CO2 26 mMol/L (22-32); CREATININE 0.9 mg/dL (0.6-1.3); ESTIMATED GFR (MDRD EQUATION) > 60; MAGNESIUM 1.9 mg/dL (1.3-2.6); PHOSPHORUS 3.5 mg/dL (2.5-4.9); POTASSIUM 4.2 mMol/L (3.7-5.1); SODIUM 144 mMol/L (135-145); TOTAL PROTEIN 7.6 g/dL (6.0-8.4)
[2016-07-24 10:50] LABS: TOTAL BILIRUBIN 0.5 mg/dL (0.0-1.5)
--- NOTE | 2016-07-24 15:04 | NUR ---
SW called the following SNF since patient's stated that [facility], [place], and [place] are her top three choices respectively. Call made to [facility] in [place] [phone]. August, facility criminal justice social worker, states that they have a waiting list with at least five people on it. Call made to [facility] in [place] [phone]. Called transferred to Melinda, facilty Dedicated Owner Operator, who did not answer. Call made to [facility] in [place] [phone]. KARINA Flores, states that they have some openings and provided SW with the following fax # [phone] to fax patient information to if making a referral. Call made to [facility] in [facility] [phone]. Giovanny Melo, states they they have some openings. She estimated that four spots are currently available, though referral acceptance would depend on level of patient care needed.
--- NOTE | 2016-07-24 16:52 | NUR ---
Significant Event: PERIODS OF ALERT/DROWSINESS, OCCASSIONAL CONFUSION, USING WRONG WORDS, INCONTINENT OF B/B, STATES OUCH WITH ALL MOVEMENT, PRN NORCO GIVEN FOR PAIN, WOUND VAC CHANGED TO L) HIP, NEW ORDERS FOR PALLIATIVE CARE CONSULT, DC SANDRA, ACCUCHECKS AC/HS, DECREASE COUMADIN TO 5MG DAILY. * STATES OFFER HAMBURGERS AND ICE TEA TO EAT AND DRINK.*, NORCO LAST GIVEN AT 1300. FULL LIFT TRANSFERS TO RECLINER, PULLS OFF CLOTHES, PABLITO WRAP TO L)EXTREMITY, FOOT DROP BOOTS BLE. TSLO BRACE ON WHILE UP IN CHAIR. Follow up:
--- NOTE | 2016-07-25 03:38 | NUR ---
Significant Event: Patient drowsy at times, otherwise wakes up agitated and has been combative a few times with repositioning. Was unable to do oral cares. Has needed cueing. Receiving scheduled tylenol, did refuse 2300 dose. Wound vac intact with 50mls out. Vitals stable, on room air. Incontinent of urine. Left abdominal fold red and excoriated. Foot drop boots on. Hands cleaned multiple times as pt undoes brief and runs hands down in periarea. Follow up:
[2016-07-25 06:22] LABS: INR - (THERAPEUTIC) 3.2 (0.9-1.1); PROTIME 37.6 SECONDS (9.6-11.1)
--- NOTE | 2016-07-25 14:50 | NUR ---
SW notified [facility] that does not want to pursue the inquiry further. SW visited with today while she was visiting. was made aware that TCU will be closing. states she wants to visit with her family doctor back home, Dr. Aubrey Gomez in [place] to see what he recommends upon d/c. states she may consider [facility] SNF, since their family doctor is there and [place] has "a new back and spine and orthopedic doctor" and a new hospital. aware [place] is full. SW to f/u with later this week to see what she has decided for a SNF preference upon d/c, based upon location of their family doctor, etc...
--- NOTE | 2016-07-25 17:48 | NUR ---
Significant Event: Pt alert, oriented to self. Denies pain, but says "ow" whenever moved or touched. Incontinent b/b. V/S stable. Takes frequent cueing to do simple tasks (ie, drinking from a straw). Does follow commands as he is able. CAM assessment positive. Immobilizer and TLSO on when OOB. Transfers with full lift/2 assist. Foot drop boots on. Joshua bandages taken off and rewrapped to r) leg. Wound vac intact. Follow up:
--- NOTE | 2016-07-26 03:42 | NUR ---
Significant Event: PATIENT INTERMITTENTLY AGITATED. REFUSED TYLENOL THROUGHOUT NIGHT. LARGE BM. INCONTINENT OF BOWEL AND BLADDER. WOUND VAC INTACT. LEFT ABDOMINAL ROLD IS RED BUT NO OPEN AREAS OBSERVED. DRY CLOTH PLACED IN FOLD. FOOT DROP BOOTS BILATERALLY IN PLACE. BED ALARM ON AT ALL TIMES. Follow up:
[2016-07-26 09:53] LABS: INR - (THERAPEUTIC) 2.4 (0.9-1.1)
--- NOTE | 2016-07-26 16:01 | NUR ---
Significant Event: 2 ASSIST FULL LIFT. C/O PAIN WHEN EVER TOUCHED OR REPOSITIONED 2 NORCO GIVEN X3 THIS SHIFT INSTEAD OF ROUTINE TYLENOL. MORE COOPERATIVE WHEN PAIN BETTER CONTROLLED. REMOVED VAC DRESSING TO LOOK AT WOUND AND [facility] REPLACED VAC DRESSING AT 1130. CONTINUES TO BE INCONTINENT OF B&B. COOPERATIVE WITH CARES. Follow up:
--- NOTE | 2016-07-27 01:54 | NUR ---
Significant Event: Alert, picks at things. [place] given 2300 and slept well after that. Wound vac intact and drains scant drainage. New skin tear, 1cm x 1cm on posterior rt wrist. Vaseline gauze and coban placed on it. Allevyn intact to rt ankle/lower leg. Wears foot drop boots on bilateral feet. Takes meds better crushed. Incontinent of bowel & bladder. Blood sugars ACHS. VSS. Follow up:
[2016-07-27 05:18] LABS: INR - (THERAPEUTIC) 2.5 (0.9-1.1)
--- NOTE | 2016-07-27 14:46 | NUR ---
Significant Event: PATIENT WOKE UP THIS MORNING TO TAKE MEDICATIONS. DID TAKE 2 NORCO AROUND 0700. CHANGED TYLENOL TO EVERY 6 HOURS SCHEDULED. PATIENT REFUSED TO EAT LUNCH, WILL KEEP TRYING TO WAKE HIM UP WHEN WE CAN. PILLS CRUSHED IN APPLESAUCE, DOES HAVE SOME THAT CAN'T BE CRUSHED STILL. HAS NEEDED NO SLIDING SCALE INSULIN TODAY. PATIENT REFUSES TO TAKE SOME MEDICATIONS, BUT WILL KEEP TRYING WELL. Follow up:
--- NOTE | 2016-07-27 17:25 | NUR ---
tcu team meeting spoke with earlier this week and explained his plan is to have patient return to surgery and doctor recommended inpatient rehab (therapists do not feel patient will be able to tolerate 3 hrs of therapy at that time). med changes this week, xrays first week of August are planned. wound vac remains in place, OT/PT co-treating,
--- NOTE | 2016-07-27 22:52 | NUR ---
pt karen and pm cares done. Very cooperative.
--- NOTE | 2016-07-28 01:12 | NUR ---
Significant Event: Alert, non combative tonight. Was VERY cooperative with me shaving him and brushing teeth. Electric shaver now in room. ACHS blood sugars. Incontinent of bowel & bladder. meds crushed in appleasauce. TYlenol scheduled every 6 hrs. Was put to bed about 2230, so was very tired. Wound vac intact to lt thigh. Leg continues to be very painful. VSS. Healing skin tears to lt wrist, and rt wrist. Follow up:
--- NOTE | 2016-07-28 11:53 | NUR ---
INTAKE REF-100%, AVG ~35%. PT IS TAKING SUPPLEMENTS. RECEIVES GLUCERNA TID, MAGIC CUP @ L&D. ENSURE COMPACT @ PM, AND CHEESE & CRACKERS @ AM. WILL INCREASE MAGIC CUP TO TID. WILL CONTINUE TO FOLLOW.
--- NOTE | 2016-07-28 13:57 | NUR ---
Significant Event: Alert to self, reorients to time/place pleasantly this am. Intermittent confusion this afternoon, but follows direction well. VSS. Full lift transfer, TLSO and RLE immobilizer needed when up greater than 45 degrees. Joshua wrap to LLE rewrap by WOC this am with wound vac change. New mepilex to right achilles by WOC this am. Denies offers of urinal use throughout shift, remains incontinent. Refuses scheduled tylenol this afternoon-confused at time will offer again this evening. Follow up:
--- NOTE | 2016-07-29 01:08 | NUR ---
Significant Event: Was confused tonight. Went to bed about 2139. Receives routine Tylenol, but received PRN [place] @ 2024. Wound VAC intact to lt thigh. BIlateral wrist skin tears open to air. lt leg glenna wrapped. ACHS blood sugars with sliding scale insulin. Please shave resident daily with electric razer. Incontinent B&B. Pills crushed in applesauce. TLSO on when up. Also rt leg immobilizer on when up. BIlateral foot drop boots on. Follow up:
[2016-07-29 06:09] LABS: INR - (THERAPEUTIC) 2.4 (0.9-1.1); PROTIME 27.4 SECONDS (9.6-11.1)
--- NOTE | 2016-07-29 14:19 | NUR ---
Significant Event: Patient alert but sleepy today. Confused to time and place. Forgetful. 2 assist full lift. TLSO on when greater than 45 degrees. Mepilex dressing x2 to right calf intact. Wound vac to left hip intact. Bilateral foot drop boots. Immobolizer to right leg when up. Accuchecks with s/s insulin. Taking scheduled Tylenol and PRN [place]. 2 large bowel movements today. Voided per urinal. You have to offer urinal he will usually not ask. Follow up:
--- NOTE | 2016-07-30 03:46 | NUR ---
Significant Event:Alert to self. Tried to reorient to time and place. 2 assist full lift. Turn Q2H. Bilateral foot drop boots. Mepilex x 2 to LRE intact. wound vac 150mmHg continuous. Joshua wrap to left leg rewrapped. L) Knee some ecchymosis. Meds whole with water. [place] @ 2000 for C/O Pain, held 2300 Tylenol.Continent of bowel and bladder so far this shift. Large BM. Call light within reach. Follow up:
[2016-07-30 06:09] LABS: PROTIME 22.8 SECONDS (9.6-11.1)
--- NOTE | 2016-07-30 14:21 | NUR ---
Significant Event: Patient alert but confused to place and time. Forgetful. Pleasant and coorporative with cares. Up to chair this afternoon. 2 assist full lift. TLSO on when up greater than 45 degrees. Wound vac to left hip intact. Bilateral foot drop boots. Immobolizer to right leg on when up. Mepilex x2 to right ankle area intact. Taking scheduled Tylenol. [facility] PRN. Accuchecks with s/s insulin. Red rash under armpits. More on left side. Nystatin powder ordered. Follow up:
--- NOTE | 2016-07-31 03:36 | NUR ---
Significant Event:Alert confused as to place. 2 assist full lift. TLSO on when up 45 degrees or greater. R) leg immobilizer on when out of bed. Wound vac patent to left leg. Mepilex x2 intact to LLE. Foot drop boots on bilaterally. ACHS ACCUCHECKS. 209 at HS. Sliding scale 4 units admin. Meds whole with water. BM this shift. Voided per urinal. Reposition as patient allows. [place] at 2100 for general discomfort, held 2300 Tylenol. Rash in armpits noted. Nystatin powder applied. Call light in reach. Follow up:
[2016-07-31 06:47] LABS: INR - (THERAPEUTIC) 1.9 (0.9-1.1); PROTIME 21.3 SECONDS (9.6-11.1)
--- NOTE | 2016-07-31 11:57 | NUR ---
Significant Event: Alert and oriented to person/place this am. Reorients well to time. Cooperative and follows directions/tasks so far today. VSS. Wound vac to left hip changed by WOC this am. Mepilex dressings to RLE changed by woc as well. Joshua wrap to LLE wrapped this shift. Nystatin powder to bilater arm pit redness, improving. Takes scheduled tylenol and requests pain pill this am, norco given with short time of relief noted. Requests urinal this shift and is occasionally inc as well. Accuchecks ACHS, levemir increased today. TLSO brace on when greater than 45 degrees. Tolerates up to chair throughout lunch hour. Follow up:
--- NOTE | 2016-07-31 13:54 | NUR ---
message rec'd from Melinda with [facility] [phone]. Melinda relayed that patients Rajani had requested [facility] be on the waiting list. Melinda asked for a time frame in r/t when patient would be ready for a bed. BRINANA called back to Melinda and left her a voice mail stating plans to take patient back to surgery in a few weeks, then after surgery, would be ready for a SNF. BRIANNA relayed to Melinda that TCU will be closing so patient will not come back to TCU.
[2016-08-01 00:25] LABS: BASOPHIL # 0.1 K/uL (0.0-0.2); BASOPHIL % 0.8 %; EOSINOPHIL # 0.3 K/uL (0.0-0.5); EOSINOPHIL % 2.3 %; HEMATOCRIT 41.1 % (37.0-53.0); HEMOGLOBIN 12.7 g/dL (11.0-16.0); IMMATURE GRANULOCYTE # 0.4 K/uL (0.0-0.3); IMMATURE GRANULOCYTE % 3.3 %; LYMPHOCYTE % 26.8 %; MCH 27.9 pg (27.0-34.0); MCHC 30.9 gm/dL (32.0-36.5); MCV 90.1 fl (83.0-98.0); MONOCYTE # 0.8 K/uL (0.0-1.0); MONOCYTE % 7.6 %; MPV 9.3 fl (9.4-12.4); NEUTROPHIL # (ANC) 6.6 K/uL (1.4-9.0); NEUTROPHIL % 59.2 %; NRBC % 0 /100WBC (0-0.00); PLATELET COUNT 440 K/uL (150-450); RBC 4.56 M/uL (3.50-5.50); RDW-CV 15.9 % (11.9-14.6); WBC 11.1 K/uL (4.0-11.0)
--- NOTE | 2016-08-01 00:37 | NUR ---
Significant Event:Alert to self;confused to time and place. 2 assist full lift. TLSO on when up 45 DEGREES or GREATER. IMMOBILIZER to right leg when out of bed. WOUND VAC patent at 150mmHg to left hip area. BILATERAL foot drop boots on. MEPILEX X2 to LRE, posterior side, intact. TACHYCARDIC. NEW ORDERS from DR IVERSON STAT CBC, BMP, MG, EKG AND METOPROLOL 25MG PO X1NOW. Scheduled Tylenol given, 1 tab [place] at 2115 for 6/10 pain to low back and left hip. Continent of bowel and bladder at times. Call light within reach. Follow up:
[2016-08-01 00:38] LABS: ANION GAP 15.2 (10.0-19.0); BLOOD UREA NITROGEN 19 mg/dL (6-24); CALCIUM 9.1 mg/dL (8.5-10.5); CHLORIDE 104 mMol/L (96-110); CO2 25 mMol/L (22-32); CREATININE 0.8 mg/dL (0.6-1.3); ESTIMATED GFR (MDRD EQUATION) > 60; MAGNESIUM 1.7 mg/dL (1.3-2.6); POTASSIUM 4.2 mMol/L (3.7-5.1); SODIUM 140 mMol/L (135-145)
[2016-08-01 05:43] LABS: BASOPHIL # 0.1 K/uL (0.0-0.2); BASOPHIL % 0.9 %; EOSINOPHIL # 0.3 K/uL (0.0-0.5); EOSINOPHIL % 2.9 %; HEMATOCRIT 40.9 % (37.0-53.0); HEMOGLOBIN 12.6 g/dL (11.0-16.0); IMMATURE GRANULOCYTE # 0.4 K/uL (0.0-0.3); IMMATURE GRANULOCYTE % 3.7 %; LYMPHOCYTE # 2.8 K/uL (0.8-4.0); LYMPHOCYTE % 27.8 %; MCH 27.5 pg (27.0-34.0); MCHC 30.8 gm/dL (32.0-36.5); MCV 89.1 fl (83.0-98.0); MONOCYTE # 0.8 K/uL (0.0-1.0); MONOCYTE % 7.4 %; MPV 9.5 fl (9.4-12.4); NEUTROPHIL # (ANC) 5.8 K/uL (1.4-9.0); NEUTROPHIL % 57.3 %; NRBC % 0 /100WBC (0-0.00); PLATELET COUNT 475 K/uL (150-450); RBC 4.59 M/uL (3.50-5.50); RDW-CV 15.8 % (11.9-14.6); WBC 10.2 K/uL (4.0-11.0)
[2016-08-01 06:09] LABS: BLOOD UREA NITROGEN 18 mg/dL (6-24); CALCIUM 9.1 mg/dL (8.5-10.5); CHLORIDE 103 mMol/L (96-110); CO2 26 mMol/L (22-32); CREATININE 0.7 mg/dL (0.6-1.3); ESTIMATED GFR (MDRD EQUATION) > 60; MAGNESIUM 1.9 mg/dL (1.3-2.6); SODIUM 138 mMol/L (135-145)
[2016-08-01 12:11] LABS: BILIRUBIN URINE NEGATIVE (NEGATIVE); BLOOD URINE 250 /UL (NEGATIVE); COLOR URINE YELLOW (YELLOW); GLUCOSE URINE NEGATIVE (NEGATIVE); KETONE URINE NEGATIVE (NEGATIVE); LEUKOCYTES URINE 25 /UL (NEGATIVE); NITRITE URINE NEGATIVE (NEGATIVE); PROTEIN URINE 30 mg/dL (NEGATIVE); TURBIDITY URINE CLEAR (CLEAR); UROBILINOGEN URINE 1 mg/dL (NORMAL)
[2016-08-01 12:22] LABS: RBC URINE PACKED FIELD #/HPF (NEGATIVE)
[2016-08-01 12:23] LABS: BACTERIA URINE MODERATE (NEGATIVE); MUCUS URINE 3+ (NEGATIVE)
--- NOTE | 2016-08-01 13:32 | NUR ---
Significant Event: Patient is alert/oriented for the most part. He is still not oriented to time. Not impulsive at this time. IV infusing to left forearm at 70ml/hr. Labs told to Patricia, did some med changes at this time to try to help with pain as well. Tylenol changed to 1000mg TID, oxycodone 5mg Q 12 hours prn moderate pain. Heartrate still not going down with extra 12.5mg dose of lopressor, cardiology asked to come see. Telemetry still on, running with a 2:1 flutter rate. Cardiology (Neil Shaikh APRN) came to see patient, consulted with Dr. Valenzuela from [facility]. Decided patient needed a fluid bolus of 500ml as well as 250mcg IVP digoxin. Did both of these things before transferring to PCU. Blood pressures improved, but heart rate was still unchanged. Wound vac still intact to left hip. TLSO on when greater than 45 degrees. Right lower leg immobilizer on when out of bed. Last VS were 123/87, 138, 18, 95% RA. UA and culture were collected before transferring to PCU. Gave report to LENNY Sandra. Follow up:
== END 2016-08-01 11:59 | disposition still patient (30) | DRG 559 ==
LOC: GSNF 14:15
PROVIDERS: Family Medicine; Internal Medicine; Nurse Practitioner Family; ADMIT Internal Medicine
PROC: F07Z9FZ Gait Training/Functional Ambulation Treatment using Assistive, Adaptive, Supportive or Protective Equipment (ICD-10-PCS; principal; 2016-06-23)
PROC: F08Z4FZ Home Management Treatment using Assistive, Adaptive, Supportive or Protective Equipment (ICD-10-PCS; 2016-06-23)
PROC: F06Z6ZZ Communicative/Cognitive Integration Skills Treatment (ICD-10-PCS; 2016-06-23)
DX: S72.142D Displaced intertrochanteric fracture of left femur, subsequent encounter for closed fracture with routine healing (principal); G92 Toxic encephalopathy; E46 Unspecified protein-calorie malnutrition; I69.351 Hemiplegia and hemiparesis following cerebral infarction affecting right dominant side; I48.92 Unspecified atrial flutter; E11.40 Type 2 diabetes mellitus with diabetic neuropathy, unspecified; I48.0 Paroxysmal atrial fibrillation; I10 Essential (primary) hypertension; D62 Acute posthemorrhagic anemia; S32.491D Other specified fracture of right acetabulum, subsequent encounter for fracture with routine healing; V89.2XXD Person injured in unspecified motor-vehicle accident, traffic, subsequent encounter; E66.9 Obesity, unspecified; E03.9 Hypothyroidism, unspecified; S22.069D Unspecified fracture of T7-T8 vertebra, subsequent encounter for fracture with routine healing; Z79.01 Long term (current) use of anticoagulants; E78.5 Hyperlipidemia, unspecified; Z79.4 Long term (current) use of insulin; F32.9 Major depressive disorder, single episode, unspecified; K21.9 Gastro-esophageal reflux disease without esophagitis; N40.0 Benign prostatic hyperplasia without lower urinary tract symptoms; Z86.718 Personal history of other venous thrombosis and embolism; S70.12XD Contusion of left thigh, subsequent encounter; Z79.82 Long term (current) use of aspirin; E55.9 Vitamin D deficiency, unspecified; T40.605A Adverse effect of unspecified narcotics, initial encounter; S22.42XD Multiple fractures of ribs, left side, subsequent encounter for fracture with routine healing
CPT/HCPCS: J0295; J1160; J1644; J3475; J7030; J7040; J7050

== ENCOUNTER 2016-08-01 12:38 | Observation (INO) | payer MEDICARE, BC ==
[~2016-08-01] VITALS: Ht 182.9 cm; Wt 97.5 kg
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
--- NOTE | 2016-08-01 16:29 | NUR ---
Significant Event: pt arrive from tcu pulse 130s afib. Cardizem 10mg iv given over 20minutes due to bp, cardizem gtt at 5mg/hr, rates mostly 90s. Urine sent by tcu for tests. Woc sees for skin and left hip wound vac. Coumadin 5mg given today, last inr 1.9. Tylenol ES scheduled. Pt very short term forgetful, pulls patches off, but knows history of things. PT OT ordered. LIFT to get to chair. Pt incontinent, can tell and uses urinal with asst. Palliative on case. BM recent. Follow up:
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
--- NOTE | 2016-08-02 03:28 | NUR ---
Significant Event: DISORIENTED TO TIME/PLACE. FORGETFUL. KEEPS PULLING HIS PATCHES OFF. RESTED IN BED ALL OF SHIFT. TURNED Q 2 HRS SIDE TO SIDE. AFEBRILE. VSS ON RA. HR 80-113'S. STILL IN AFIB. SBP 120-130'S. SCHEDULED EXTRA STRENGH TYLENOL AND OXYCODONE X1 GIVEN FOR PAIN. PATIENT WAS ABLE TO FIND RELIEF AND NO C/O OF PAIN THE REST OF THE SHIFT. PATIENT IS RESTING COMFORTABLY. UNNA BOOTS ON. WOUND VAC TO L) HIP/THIGH SET AT 125 MM/HG. DRESSING C/D/I. INCONTINENT OF URINE. NO BM THIS SHIFT. Follow up: CONTINUE WITH PLAN OF CARE.
--- NOTE | 2016-08-02 03:54 | NUR ---
IV TO L) FA HAS CARDIEZM RUNNING AT 5 MG/H.
[2016-08-02 05:53] LABS: INR - (THERAPEUTIC) 1.7 (0.9-1.1); PROTIME 18.3 SECONDS (9.6-11.1)
--- NOTE | 2016-08-02 12:10 | NUR ---
Diabetes center note 1145 OT and PT personnel were in the patient's room at the time of this visit. Briefly introduced self to patient and left the Diabetes managemenet booklet and Diabetes and Survival Skills Checklist at bedside for patient/family to complete.
--- NOTE | 2016-08-02 14:51 | NUR ---
Call to TCU, talked with Elena, they will take Felipe back tomorrow at 1100. Packet started, orders are printed and completed, ID Screen is complete and in the packet. Will continue to follow and assist.
--- NOTE | 2016-08-02 17:24 | NUR ---
Significant Event: VSS ON RA. CARDIZEM GTT OFF THIS AM AROUND 0945 WITH PO INTITIATED. RHYTHM SINUS WITH PAC'S. TYLENOL ES SCHEDULED FOR PAIN. NO PRN GIVEN PATIENT SENSITIVE AND BECOMES DROWSY WITH OXY. WOC CHANGED WOUND-VAC TO LEFT THIGH AND DRESSING TO R) ANKLE C/D/I. TURN Q2HR WITH THERAPY SITTING PATIENT AT EDGE OF BED. TLSO BRACE ON WHEN AT 45 DEGREE ANKLE AND HIGHER. IMMOBILIZER TO RIGHT KNEE WHEN UP. CURRENTLY NON-WT BEARING TO BLE. ACHS ACCUCHECKS. REMAINS DISORIENTED TO PLACE AND OCCASIONALLY TIME. KNOWS CURRENT YEAR. CALM/COOPERATIVE WITH CARES. VOIDS PER URINAL. NO BM TODAY. FOOT DROP BOOTS BILATERALLY IN PLACE. Follow up: PLAN FOR TCU TOMORROW AT 1100. CONT TO MONITOR. TURN Q2HR.
[2016-08-03 04:52] LABS: INR - (THERAPEUTIC) 1.7 (0.9-1.1); PROTIME 18.4 SECONDS (9.6-11.1)
--- NOTE | 2016-08-03 05:06 | NUR ---
Significant Event: Patient disoriented to time and place. Speech is repetative. Vital signs stable. On RA. Often pulls on telemetry wires and patches. Turned Q2 when patient allowed. Patient uncooperative at times and combative with third assessment. Scheduled tylenol given for complaints of back and leg pain with little relief. Oxycodone x1 given with relief. Unna boots remain on while in bed. Wound Vac continues at 125mm/hg. Incontinent of urine. No BM. Slept throughout most of the shift. Follow up: Transfer to TCU at 1100.
--- NOTE | 2016-08-03 10:57 | NUR ---
Significant Event: pt inc.xlarge urine today and got bath. Oxycodone extra dose at 1030. Wound vac intact. WOC here makes new orders. New IV RFA today. Pt eats self. Cardizem increased po. INR 1.7. PT works with pt. Pt alittle irritable this am. Pt shaved face. Looking for his phone?? Follow up:
== END 2016-08-03 11:30 ==
LOC: GPCU 12:38
PROVIDERS: Nurse Practitioner Family; ADMIT Internal Medicine
DX: I48.92 Unspecified atrial flutter (principal); I10 Essential (primary) hypertension; E78.5 Hyperlipidemia, unspecified; E03.9 Hypothyroidism, unspecified; F32.9 Major depressive disorder, single episode, unspecified; N40.0 Benign prostatic hyperplasia without lower urinary tract symptoms; K21.9 Gastro-esophageal reflux disease without esophagitis; I48.0 Paroxysmal atrial fibrillation; E11.40 Type 2 diabetes mellitus with diabetic neuropathy, unspecified; E55.9 Vitamin D deficiency, unspecified; Z86.73 Personal history of transient ischemic attack (TIA), and cerebral infarction without residual deficits; Z86.718 Personal history of other venous thrombosis and embolism; Z88.2 Allergy status to sulfonamides; Z79.899 Other long term (current) drug therapy; Z96.651 Presence of right artificial knee joint; Z90.49 Acquired absence of other specified parts of digestive tract; Z98.890 Other specified postprocedural states
CPT/HCPCS: G0378; G8978; G8979; G8980; G8987; G8988; G8989; J7040

== ENCOUNTER 2016-08-03 12:16 | Inpatient (IN) | payer MEDICARE, BC ==
[~2016-08-03] VITALS: Ht 182.9 cm; Wt 100.0 kg
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
[2016-08-04 04:07] LABS: PROTIME 22.1 SECONDS (9.6-11.1)
[2016-08-04 10:35] LABS: ANION GAP 14.7 (10.0-19.0); BLOOD UREA NITROGEN 17 mg/dL (6-24); CALCIUM 8.9 mg/dL (8.5-10.5); CHLORIDE 108 mMol/L (96-110); CO2 24 mMol/L (22-32); CREATININE 0.7 mg/dL (0.6-1.3); ESTIMATED GFR (MDRD EQUATION) > 60; MAGNESIUM 1.9 mg/dL (1.3-2.6); POTASSIUM 3.7 mMol/L (3.7-5.1); SODIUM 143 mMol/L (135-145)
[2016-08-07 05:14] LABS: INR - (THERAPEUTIC) 2.2 (0.9-1.1); PROTIME 24.1 SECONDS (9.6-11.1)
[2016-08-09 06:38] LABS: INR - (THERAPEUTIC) 1.9 (0.9-1.1); PROTIME 20.6 SECONDS (9.6-11.1)
[2016-08-11 06:24] LABS: INR - (THERAPEUTIC) 1.9 (0.92-1.07); PROTIME 20.1 SECONDS (9.8-11.4)
[2016-08-13 06:13] LABS: INR - (THERAPEUTIC) 1.83 (0.92-1.07); PROTIME 19.3 SECONDS (9.8-11.4)
[2016-08-14 05:45] LABS: HEMATOCRIT 37.6 % (37.0-53.0); HEMOGLOBIN 11.6 g/dL (11.0-16.0); MCH 26.8 pg (27.0-34.0); MCHC 30.9 gm/dL (32.0-36.5); MCV 86.8 fl (83.0-98.0); MPV 9.3 fl (9.4-12.4); RBC 4.33 M/uL (3.50-5.50); RDW-CV 16.5 % (11.9-14.6); WBC 9.6 K/uL (4.0-11.0)
[2016-08-14 05:46] LABS: PLATELET COUNT 288 K/uL (150-450)
[2016-08-14 05:51] LABS: INR - (THERAPEUTIC) 1.99 (0.92-1.07)
[2016-08-14 06:04] LABS: BLOOD UREA NITROGEN 22 mg/dL (6-24); CHLORIDE 104 mMol/L (96-110); CO2 28 mMol/L (22-32); CREATININE 0.9 mg/dL (0.6-1.3); ESTIMATED GFR (MDRD EQUATION) > 60; SODIUM 140 mMol/L (135-145)
[2016-08-14 06:16] LABS: ABSOLUTE NEUTROPHIL CT (ANC) 6.4 K/uL (1.4-9.0); LYMPHOCYTE # 1.2 K/uL (0.8-4.0); LYMPHOCYTE % 13 %; MONOCYTE # 0.8 K/uL (0.0-1.0); SEGMENTED NEUTROPHIL # 6.4 K/uL (1.4-9.0); SEGMENTED NEUTROPHIL % 67 %
[2016-08-16 06:16] LABS: INR - (THERAPEUTIC) 1.96 (0.92-1.07); PROTIME 20.7 SECONDS (9.8-11.4)
[2016-08-18 06:36] LABS: INR - (THERAPEUTIC) 2.22 (0.92-1.07); PROTIME 23.5 SECONDS (9.8-11.4)
[2016-08-20 05:34] LABS: INR - (THERAPEUTIC) 2.79 (0.92-1.07); PROTIME 29.6 SECONDS (9.8-11.4)
[2016-08-21 05:29] LABS: INR - (THERAPEUTIC) 3.31 (0.92-1.07); PROTIME 35.2 SECONDS (9.8-11.4)
[2016-08-21 14:49] LABS: BILIRUBIN URINE NEGATIVE (NEGATIVE); BLOOD URINE NEGATIVE /UL (NEGATIVE); COLOR URINE YELLOW (YELLOW); GLUCOSE URINE NEGATIVE (NEGATIVE); KETONE URINE NEGATIVE (NEGATIVE); LEUKOCYTES URINE 25 /UL (NEGATIVE); NITRITE URINE NEGATIVE (NEGATIVE); PROTEIN URINE 15 mg/dL (NEGATIVE); TURBIDITY URINE CLEAR (CLEAR); UROBILINOGEN URINE 1 mg/dL (NORMAL)
[2016-08-21 15:03] LABS: BACTERIA URINE NEGATIVE (NEGATIVE); CRYSTALS URINE CALCIUM OXALATE (NEGATIVE); EPITHELIAL URINE 0-2 #/HPF (NEGATIVE); MUCUS URINE 2+ (NEGATIVE); RBC URINE NEGATIVE #/HPF (NEGATIVE)
[2016-08-22 05:59] LABS: INR - (THERAPEUTIC) 2.9 (0.92-1.07); PROTIME 30.8 SECONDS (9.8-11.4)
== END 2016-08-22 10:35 | DRG 310 ==
LOC: GSNF 12:16
PROVIDERS: Internal Medicine; Nurse Practitioner; Nurse Practitioner Family; Physician Assistant; ADMIT Internal Medicine
DX: I48.92 Unspecified atrial flutter (principal); I47.2 Ventricular tachycardia; E11.40 Type 2 diabetes mellitus with diabetic neuropathy, unspecified; Z95.2 Presence of prosthetic heart valve; I48.0 Paroxysmal atrial fibrillation; E78.5 Hyperlipidemia, unspecified; Z86.718 Personal history of other venous thrombosis and embolism; I10 Essential (primary) hypertension; E03.9 Hypothyroidism, unspecified; F32.9 Major depressive disorder, single episode, unspecified; Z51.5 Encounter for palliative care; S22.070D Wedge compression fracture of T9-T10 vertebra, subsequent encounter for fracture with routine healing; V89.2XXD Person injured in unspecified motor-vehicle accident, traffic, subsequent encounter; S34.101D Unspecified injury to L1 level of lumbar spinal cord, subsequent encounter; S72.001D Fracture of unspecified part of neck of right femur, subsequent encounter for closed fracture with routine healing; S72.002D Fracture of unspecified part of neck of left femur, subsequent encounter for closed fracture with routine healing; Z79.4 Long term (current) use of insulin; E55.9 Vitamin D deficiency, unspecified; E66.9 Obesity, unspecified; Z68.29 Body mass index [BMI] 29.0-29.9, adult

== ENCOUNTER → 2016-10-09 | Outpatient (CLI) | payer MEDICARE, BC | END | disposition disaster alternative care site (69) | LOC: GRAD 12:51 | DX: M79.606 Pain in leg, unspecified (principal); M54.9 Dorsalgia, unspecified; S72.002D Fracture of unspecified part of neck of left femur, subsequent encounter for closed fracture with routine healing; Z96.642 Presence of left artificial hip joint; X58.XXXD Exposure to other specified factors, subsequent encounter ==

== ENCOUNTER → 2016-12-11 | Outpatient (CLI) | payer MEDICARE, BC | END | disposition disaster alternative care site (69) | LOC: GRAD 11:15 | DX: Z47.89 Encounter for other orthopedic aftercare (principal); M21.851 Other specified acquired deformities of right thigh ==